=== PATIENT | female | born 1975 | race Caucasian/White ===

== ENCOUNTER 2017-12-06 14:03 | Emergency (ER) | payer MEDICAID ==
[~2017-12-06] VITALS: Ht 170.2 cm; Wt 93.4 kg
[2017-12-06 14:37] VITALS: BP 136/78
--- NOTE | 2017-12-06 15:33 | NUR ---
PATIENT AMBULATED TO BED #3
--- NOTE | 2017-12-06 15:58 | NUR ---
PT. CAME INTO THE ED C/O A RASH THAT HAS BEEN COMING AND GOING FOR A MONTH. PT. STATES " WE CLEANED OUT ALL OUR HOUSE SOMETIMES WHEN I SHOWER IT GOES AWAY BUT IT RANDOMLY GOES AWAY AND THEN COMES BACK IN DIFFERENT PARTS OF MY BODY." RR EVEN AND UNLABORED. DENIES SOB, DENIES FEVER, DENIES COUGH. PT. HAS HIVES IN BILATERAL ARMS AND RED. PT. DENIES N/V/D. Olivia SCOTT NOTIFIED. WILL CONTINUE TO MONITOR.
[2017-12-06] MEDS: diphenhydrAMINE 50 MG/ML VIAL IM ONE (16:10)
[2017-12-06] MEDS: predniSONE 20 MG TAB PO ONE (16:11)
[2017-12-06] MEDS: FAMOTIDINE 20 MG TAB PO ONE (16:11)
--- NOTE | 2017-12-06 16:15 | NUR ---
PT. IN ROOM RESTING COMFORTABLY , RR EVEN AND UNLABORED. WILL CONTINUE TO MONITOR. DAUGHTER AT BEDSIDE
[2017-12-06 17:13] VITALS: BP 130/76
--- NOTE | 2017-12-06 17:13 | NUR ---
Patient discharged with v/s stable. Written and verbal after care instructions given and explained. Patient alert, oriented and verbalized understanding of instructions. Ambulatory with steady gait. All questions addressed prior to discharge. ID band removed. Patient advised to follow up with PMD. Rx of PREDNISONE, PEPCID, BENADRYL given. Patient educated on indication of medication including possible reaction and side effects. Opportunity to ask questions provided and answered.
== END 2017-12-06 17:13 | disposition home or self-care (01) ==
LOC: MED 14:03
DX: L50.9 Urticaria, unspecified (principal)
CPT/HCPCS: 96372; 99283; J1200; J7512

== ENCOUNTER 2018-07-07 17:14 | Emergency (ER) | payer MEDICAID ==
[~2018-07-07] VITALS: Ht 170.2 cm; Wt 97.2 kg
[2018-07-07 17:30] VITALS: BP 154/88
[2018-07-07] MEDS ORDERED: PROMETH/CODEINE 6.25-10MG/5ML 5 ML UDC PO ONE (21:50)
[2018-07-07 22:10] VITALS: BP 129/72
== END 2018-07-07 22:10 | disposition home or self-care (01) ==
LOC: MED 17:14
DX: J40 Bronchitis, not specified as acute or chronic (principal); B34.9 Viral infection, unspecified; Z87.442 Personal history of urinary calculi
CPT/HCPCS: 71046; 99283

== ENCOUNTER 2018-08-06 20:48 | Emergency (ER) | payer MEDICAID ==
[~2018-08-06] VITALS: Ht 170.2 cm; Wt 96.2 kg
[2018-08-06 20:56] VITALS: BP 137/76
--- NOTE | 2018-08-06 20:59 | NUR ---
TO LOBBY A/W BED, ELIZABETH ERCIO NOTED
--- NOTE | 2018-08-06 21:18 | NUR ---
PT AMBULATED TO ER BED 09
--- NOTE | 2018-08-06 21:25 | NUR ---
42/F PRESENTS WITH FAMILY/FRIEND, C/O NAUSEA, VOMITING, DIZZINESS, AND INTERMITTENT PRESSURE-LIKE R SIDED MID ABD PAIN, X2 DAYS. REPORTS HAVING FEVER (HIGHEST 103), TOOK 1000MG TYLENOL AT 1500 AND 800MG MOTRIN AT 1700, AFEBRILE AT THIS TIME. PT AOX4, GCS 15, RR EVEN AND UNLABORED. HX GESTATIONAL DM, KIDNEY STONE SURGERY
--- NOTE | 2018-08-06 21:55 | NUR ---
Dr. Dickinson evaluating patient at bedside.
[2018-08-06] MEDS ORDERED: NACL 0.9% 500 ML IV ONE (22:23)
[2018-08-06] MEDS ORDERED: ONDANSETRON 4 MG/2 ML VIAL IVP ONE (22:25)
[2018-08-06] MEDS ORDERED: KETOROLAC 30 MG/ML VIAL IVP ONE (22:25)
--- NOTE | 2018-08-06 23:05 | NUR ---
PT TAKEN TO CT
--- NOTE | 2018-08-06 23:11 | NUR ---
Elijah ny in [facility] - 08/06/18 at 2319 by LAINE PT RETURN FROM CT
--- NOTE | 2018-08-06 23:16 | NUR ---
PT RETURN FROM CT
[2018-08-07 00:40] VITALS: BP 124/81
--- NOTE | 2018-08-07 00:40 | NUR ---
Patient discharged with v/s stable. Written and verbal after care instructions given and explained. Patient alert, oriented and verbalized understanding of instructions. Ambulatory with steady gait. All questions addressed prior to discharge. ID band removed. Patient advised to follow up with PMD. Rx of ZOFRAN ODT, MOTRIN given. Patient educated on indication of medication including possible reaction and side effects. Opportunity to ask questions provided and answered.
== END 2018-08-07 00:40 | disposition home or self-care (01) ==
LOC: MED 20:48
DX: R10.11 Right upper quadrant pain (principal); R11.2 Nausea with vomiting, unspecified; R50.9 Fever, unspecified; R42 Dizziness and giddiness; Z87.442 Personal history of urinary calculi
CPT/HCPCS: 74176; 81025; 96361; 96374; 96375; 99284; J1885; J2405; J7030